=== PATIENT | male | born 1985 | race Caucasian/White ===

== ENCOUNTER 2025-09-12 07:54 | Emergency (ER) | payer BC ==
[~2025-09-12] VITALS: Ht 190.5 cm; Wt 139.0 kg
[2025-09-12 08:26] LABS: BASOPHILS 0.6 % (0.2-1.2); EOSINOPHILS 1.7 % (0.8-7.0); LYMPHOCYTES 20.7 % (21.8-53.1); MCH 30.7 PG (25.7-32.2); MCHC 34.4 g/dL (32.3-36.5); MCV 89.3 fL (79.0-92.2); MONOCYTES 8.9 % (5.3-12.2); NEUTROPHILS 67.9 % (34.0-67.9); RBC 5.31 M/uL (4.63-6.08)
[2025-09-12] MEDS ORDERED: HYDROmorphone HCL 1 MG/ML SYR IV ONE ×2 (08:30→09:15)
[2025-09-12 08:41] LABS: ALT (SGPT) 34.0 U/L (14-59); AST (SGOT) 20.0 U/L (15-37); GLOMERULAR FILTRATION RATE,EST 111.0 mL/min (>60); PROTEIN, TOTAL 7.6 g/dL (6.4-8.2); UREA NITROGEN 22.0 mg/dL (7-18)
[2025-09-12 09:29] LABS: BLOOD/HGB, URINE LARGE (Negative); KETONE, URINE NEGATIVE (Negative); LEUK ESTERASE, URINE NEGATIVE (negative); NITRITE, URINE NEGATIVE (negative)
[2025-09-12] MEDS ORDERED: SODIUM CHLORIDE 0.9% 1,000 ML IV PRN (09:30)
[2025-09-12 09:38] LABS: BACTERIA, URINE 2+ /hpf (negative); CASTS, URINE NONE SEEN \\lpf; CRYSTALS, URINE NONE SEEN (0-1+); EPITHELIAL CELLS, URINE 0 /lpf (0-1+); REFLEX CULTURE, URINE Yes (No)
[2025-09-12] MEDS ORDERED: IBU600 MG PO (11:24)
[2025-09-12] MEDS ORDERED: FLOMAX0.4 MG PO (11:24)
[2025-09-12] MEDS ORDERED: ONDANSETRON HCL4 MG PO (11:24)
[2025-09-12] MEDS ORDERED: HYDROCODONE/APAP 10/325 1 TAB PO ONE (11:30)
[2025-09-12] MEDS ORDERED: HYDROCODON-ACE1 EAC8 PO (11:31)
[2025-09-12 11:44] VITALS: BP 155/81
== END 2025-09-12 11:45 | disposition home or self-care (01) ==
LOC: ED 07:54
PROVIDERS: Emergency Medicine
DX: N20.2 Calculus of kidney with calculus of ureter (principal); G47.30 Sleep apnea, unspecified
CPT/HCPCS: 36415; 74176; 80053; 81001; 83690; 85025; 87088; 96361; 96374; 96375; 96376; 99284-25; A9270; J1171; J2405; J7030